=== PATIENT | female | born 1980 | race Caucasian/White ===

== ENCOUNTER → 2017-01-10 | Outpatient (CLI) | payer BC ==
--- NOTE | 2017-01-10 10:15 | CR ---
EXAMINATION: Two-view chest (PA and Lateral views). HISTORY: Wheezing. FINDINGS: The trachea is midline. The cardiomediastinal silhouette is within normal limits. No pulmonary infil trates, effusions or pneumothorax. Osseous structures appear unremarkable. IMPRESSION: No acute cardiopulmonary process.
== END ==
LOC: MW.CHFP 09:14
PROVIDERS: ATTEND Physician Assistant
DX: R06.2 Wheezing (principal)
CPT/HCPCS: 36415; 71020; 71020-26; 85025

== ENCOUNTER → 2017-01-30 | Outpatient (CLI) | payer BC | LOC: MW.CHFP 13:10 | PROVIDERS: ATTEND Student in an Organized Health Care Education/Training Program | DX: J02.9 Acute pharyngitis, unspecified (principal); R05 Cough | CPT/HCPCS: 87081; 87880 ==

== ENCOUNTER 2017-04-09 12:11 | Inpatient (IN) | payer BC ==
[2017-04-09] MEDS ORDERED: Methylergonovine 0.2 MG/1 ML Amp IM PRN (12:39)
[2017-04-09] MEDS ORDERED: Carboprost Tromethamine 250 MCG/1 ML Amp IM PRN (12:39)
[2017-04-09] MEDS ORDERED: Lidocaine 1% 50 ML MDV INJECT PRN (12:39)
[2017-04-09] MEDS ORDERED: Misoprostol 200 MCG Tab PO PRN (12:39)
[2017-04-09] MEDS ORDERED: Sodium Chloride 0.9% 10 ML Syringe FLUSH PRN (12:39)
[2017-04-09] MEDS ORDERED: Butorphanol 1 MG/ML SDV IVPUSH PRN (12:39)
[2017-04-09] MEDS ORDERED: Water For Irrigation,Sterile 1,000 ML Container IRR PRN (12:39)
[2017-04-09] MEDS ORDERED: Sodium Chloride 0.9% 2.5 ML Syringe FLUSH PRN (12:39)
[2017-04-09] MEDS ORDERED: Nalbuphine 10 MG/1 ML Vial IVPUSH PRN (12:39)
[2017-04-09] MEDS ORDERED: Oxytocin/Lactated Ringers 30 UNIT/500 ML BAG IV SCH ×2 (12:45→13:15)
[2017-04-09] MEDS ORDERED: Lactated Ringers 1,000 ML IV SCH ×2 (12:45→19:00)
[2017-04-09] MEDS ORDERED: Terbutaline 1 MG/ML SDV SUBCUT PRN (13:11)
[2017-04-09] MEDS ORDERED: Misoprostol 25 MCG (1/4 of 100 MCG) Tab VAG PRN (13:11)
[2017-04-09] MEDS ORDERED: Misoprostol 25 MCG (1/4 of 100 MCG) Tab VAG SCH (13:15)
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
[2017-04-09] MEDS ORDERED: Citric Acid/Sodium Citrate Solution 30 ML Cup PO SCH (17:15)
[2017-04-09] MEDS ORDERED: Oxytocin 10 Units/1 ML SDV ONE (17:16)
[2017-04-09] MEDS ORDERED: Ondansetron 4 MG/2 ML SDV ONE (17:16)
[2017-04-09] MEDS ORDERED: ePHEDrine 50 MG/ML SDV ONE (17:16)
[2017-04-09] MEDS ORDERED: ceFAZolin 1 GM Vial ONE (17:34)
[2017-04-09] MEDS ORDERED: Sodium Chloride 0.9% 20 ML ONE (17:34)
[2017-04-09] MEDS ORDERED: Midazolam 1 MG/ML 2 ML SDV ONE (17:41)
[2017-04-09] MEDS ORDERED: fentaNYL 100 MCG/2 ML SDV ONE (18:01)
[2017-04-09] MEDS ORDERED: Propofol 200 MG/20 ML SDV ONE (18:16)
[2017-04-09] MEDS ORDERED: HYDROmorphone 2 MG/ML Syringe ONE (18:47)
[2017-04-09] MEDS ORDERED: Ibuprofen 800 MG Tab PO PRN (18:58)
[2017-04-09] MEDS ORDERED: Bisacodyl 10 MG Supp RECTAL PRN (18:58)
[2017-04-09] MEDS ORDERED: Lanolin 100% Cream 7 GM Tube TOP PRN (18:58)
[2017-04-09] MEDS ORDERED: diphenhydrAMINE 50 MG/ML SDV IVPUSH PRN (18:58)
[2017-04-09] MEDS ORDERED: Acetaminophen/oxyCODONE 325-5 MG Tab PO PRN (18:58)
[2017-04-09] MEDS ORDERED: Ondansetron 4 MG/2 ML SDV IV PRN (18:58)
[2017-04-09] MEDS ORDERED: HYDROmorphone/Normal Saline 6 MG/30 ML PCA Vial IV PRN (19:01)
[2017-04-09] MEDS: Ketorolac 30 MG/ML SDV IVPUSH SCH (19:19)
--- NOTE | 2017-04-09 19:19 | PCM.POSTAN ---
POST ANESTHESIA ASSESSMENT - MENTAL STATUS Mental Status: alert, oriented - RESPIRATORY Respiratory Status: respiratory rate WNL, airway patent, O2 saturation stable - CARDIOVASCULAR CV Status: pulse rate WNL, blood pressure stable - GASTROINTESTINAL GI Status: no symptoms - PAIN Pain Score: 3 - POST OP HYDRATION Hydration Status: adequate & stable
[2017-04-10] MEDS: Ketorolac 30 MG/ML SDV IVPUSH SCH ×4 (01:08→18:42)
--- NOTE | 2017-04-10 06:54 | PCM48HPAN ---
Post Anesthesia Note - EVALUATION WITHIN 48HRS OF ANESTHETIC Vital Signs in Normal Range: Yes Patient Participated in Evaluation: Yes Respiratory Function Stable: Yes Airway Patent: Yes Cardiovascular Function Stable: Yes Hydration Status Stable: Yes Pain Control Satisfactory: Yes Nausea and Vomiting Control Satisfactory: Yes Mental Status Recovered: Yes
--- NOTE | 2017-04-10 07:40 | PCM.OPNOTE ---
- General Post-Op/Procedure Note Date of Surgery/Procedure: 04/09/17 Operative Procedure(s): 1 LTCS. Internal version to breech presentation. Placement of surgicel Findings: VFI in vtx present with APGARS of 7&8 and wt of 3200g. Meconium stained amniotic fluid. Normal placenta with 3VC. Normal uterus, tubes and ovaries. Pre Op Diagnosis: IUP @ 38+3. SROM. Meconium stained amniotic fluid. malpresentation Post-Op Diagnosis: Same. Delivered Anesthesia Technique: Spinal Primary Surgeon: Antonia Carlton Anesthesia Provider: Yuri Silver Homebound Teacher: Yuri Engel Fluid Replacement, Intraop: 2,100 Output, Urine Amount: 320 EBL in mLs: 750 Complications: None known Condition: Good Free Text/Narrative:: Intake & Output 04/09/17 04/10/17 04/10/17 22:59 06:59 14:59 Intake Total 2200 1500 Output Total 680 850 Balance 1520 650 JobID#[id number]
--- NOTE | 2017-04-10 08:27 | PCM.PNPP ---
[id number] Status: Reports: pain controlled, tolerating diet, ambulating, urinating - Review of Systems General: Denies: Fever, Weakness, Fatigue Pulmonary: Denies: shortness of breath, pleuritic chest pain, cough Cardiovascular: Denies: Chest Pain, Palpitations, Dyspnea on Exertion Gastrointestinal: Denies: Abdominal pain Genitourinary: Denies: dysuria Psychiatric: Reports: no symptoms - General Info Date of Service: 04/10/17 - Patient Data Vital Signs - most recent: Last Vital Signs Temp 36.8 C 04/10/17 06:00 Pulse 88 04/10/17 06:00 Resp 16 04/10/17 06:00 BP 124/72 04/10/17 06:00 Pulse Ox 99 04/10/17 06:00 Weight - most recent: 66 kg I&O - last 24 hours: Intake & Output 04/09/17 04/10/17 04/10/17 22:59 06:59 14:59 Intake Total 2200 1500 2100 Output Total 680 850 320 Balance 5949 627 6204 Lab Results - last 24 hrs: Laboratory Results - last 24 hr 04/09/17 04/09/17 04/10/17 Range/Units 13:03 13:03 05:17 WBC 11.01 H (4.0-11.0) K/uL RBC 3.38 L (4.30-5.90) M/uL Hgb 9.8 L 7.5 L (12.0-16.0) g/dL Hct 30.0 L 22.3 L (36.0-46.0) % MCV 88.8 (80.0-98.0) fL MCH 29.0 (27.0-32.0) pg MCHC 32.7 (31.0-37.0) g/dL RDW Std Deviation 46.0 (28.0-62.0) fl RDW Coeff of William 14 (11.0-15.0) % Plt Count 172 (150-400) K/uL MPV 11.30 (7.40-12.00) fL Nucleated RBC % 0.0 /100WBC Nucleated RBCs # 0 K/uL Blood Type A POSITIVE Antibody Screen NEGATIVE Crossmatch See Detail Med Orders - Current: Current Medications Bisacodyl (Dulcolax) 10 mg RECTAL .ONCE PRN PRN Reason: Constipation Butorphanol Tartrate (Stadol) 1 mg IVPUSH Q1H PRN PRN Reason: Pain Carboprost Tromethamine (Hemabate Ds) 250 mcg IM ASDIRECTED PRN PRN Reason: Post Hemorrhage Citric Acid/Sodium Citrate (Bicitra Solution) 30 ml PO .ONCE DURGA Diphenhydramine HCl (Benadryl) 25 mg IVPUSH Q6H PRN PRN Reason: Itching or Nausea Docusate Sodium (Colace) 100 mg PO BID [facility] Emollient Ointment (Lansinoh Hpa) 0 gm TOP ASDIRECTED PRN PRN Reason: Sore Nipples Hydromorphone HCl (Dilaudid [place] Man 6 Mg In Ns 30 Ml) 6 mg IV ASDIRECTED PRN; Protocol PRN Reason: Abdominal Pain Last Admin: 04/09/17 20:40 Dose: 6 mg Lactated Ringer's (Ringers, Lactated) 1,000 mls @ 150 mls/hr IV ASDIRECTED [facility] Last Admin: 04/09/17 13:03 Dose: 150 mls/hr Oxytocin/Lactated Ringer's (Pitocin In Lr 30 Units/500 Ml) 30 unit in 500 mls @ 2 mls/hr IV TITRATE DURGA; 2 MUNITS/MIN PRN Reason: Protocol Last Admin: 04/09/17 15:29 Dose: 2 munits/min, 2 mls/hr Lactated Ringer's (Ringers, Lactated) 1,000 mls @ 125 mls/hr IV ASDIRECTED [facility] Last Admin: 04/10/17 01:44 Dose: 125 mls/hr Ibuprofen (Motrin) 800 mg PO Q8H PRN PRN Reason: mild pain or fever Ketorolac Tromethamine (Toradol) 30 mg IVPUSH Q6H [facility] Stop: 04/10/17 19:01 Last Admin: 04/10/17 07:09 Dose: 30 mg Lidocaine HCl (Xylocaine 1%) 50 ml INJECT .ONCE PRN PRN Reason: Laceration repair Methylergonovine Maleate (Methergine) 0.2 mg IM ASDIRECTED PRN PRN Reason: Post Hemorrhage Misoprostol (Cytotec) 200 mcg PO .ONCE PRN PRN Reason: Post Hemorrhage Misoprostol (Cytotec) 25 mcg VAG .ONCE DURGA Misoprostol (Cytotec) 25 mcg VAG Q4H PRN PRN Reason: Cervical Ripening Stop: 04/10/17 17:12 Ondansetron HCl (Zofran) 4 mg IV Q4H PRN PRN Reason: Nausea/Vomiting Oxycodone/Acetaminophen (Percocet 325-5 Mg) 1 tab PO Q4H PRN PRN Reason: Pain (moderate 4-6) Oxycodone/Acetaminophen (Percocet 325-5 Mg) 2 tab PO Q4H PRN PRN Reason: Pain (moderate 4-6) Sodium Chloride (Saline Flush) 10 ml FLUSH ASDIRECTED PRN PRN Reason: Keep Vein Open Sodium Chloride (Saline Flush) 2.5 ml FLUSH ASDIRECTED PRN PRN Reason: Keep Vein Open Sterile Water (Sterile Water For Irrigation) 1,000 ml IRR ASDIRECTED PRN PRN Reason: delivery Terbutaline Sulfate (Brethine) 0.25 mg SUBCUT ASDIRECTED PRN PRN Reason: Tacysystole Discontinued Medications Cefazolin Sodium (Ancef) Confirm Administered Dose 2 gm .ROUTE .STK-MED ONE Stop: 04/09/17 17:35 Ephedrine Sulfate (Ephedrine Sulfate) Confirm Administered Dose 50 mg .ROUTE .STK-MED ONE Stop: 04/09/17 17:17 Fentanyl (Sublimaze) Confirm Administered Dose 100 mcg .ROUTE .STK-MED ONE Stop: 04/09/17 18:02 Hydromorphone HCl (Dilaudid) Confirm Administered Dose 2 mg .ROUTE .STK-MED ONE Stop: 04/09/17 18:48 Oxytocin/Lactated Ringer's (Pitocin In Lr 30 Units/500 Ml) 30 unit in 500 mls @ 999 mls/hr IV TITRATE DURGA PRN Reason: 999 MUNITS/MIN Stop: 04/09/17 13:16 Sodium Chloride (Normal Saline) Confirm Administered Dose 20 mls @ as directed .ROUTE .STK-MED ONE Stop: 04/09/17 17:35 Ibuprofen (Motrin) 800 mg PO Q8H PRN PRN Reason: mild pain or fever Midazolam HCl (Versed 1 Mg/Ml) Confirm Administered Dose 2 mg .ROUTE .STK-MED ONE Stop: 04/09/17 17:42 Nalbuphine HCl (Nubain) 10 mg IVPUSH Q1H PRN PRN Reason: Pain (severe 7-10) Stop: 04/09/17 14:40 Ondansetron HCl (Zofran) Confirm Administered Dose 4 mg .ROUTE .STK-MED ONE Stop: 04/09/17 17:17 Oxytocin (Pitocin) Confirm Administered Dose 20 unit .ROUTE .STK-MED ONE Stop: 04/09/17 17:17 Propofol (Diprivan 20 Ml) Confirm Administered Dose 200 mg .ROUTE .STK-MED ONE Stop: 04/09/17 18:17 - Infant Interaction Disposition, : [place] in Room with Family Infant Interaction: Holding Infant Feeding: Attempted ; Nursed Fair/Poor Support Person: - Recovery Exam Fundal Tone: Firm Fundal Level: 1 Fingerbreadths Below Umbilicus Fundal Placement: Midline Lochia Amount: Scant Lochia Color: Rubra/Red Perineum Description: Intact, Minimal Bruising/Swelling Bladder Status: Indwelling Catheter in Place Urinary Elimination: Indwelling Catheter - Exam General: alert, oriented Neck: supple Lungs: Clear to auscultation, Normal respiratory effort Cardiovascular: Regular Rate, Regular Rhythm Abdomen: bowel sounds present, soft, no tenderness, no distension Extremities: edema (trace) Psy/Mental Status: alert, normal affect, normal mood - Problem List & Annotations (1) delivery delivered SNOMED Code(s): 098800402 Code(s): O82 - ENCOUNTER FOR DELIVERY WITHOUT INDICATION Status: Acute Current Visit: Yes - Problem List Review Problem List Initiated/Reviewed/Updated: Yes - Assessment Assessment:: POD#1 from PLTCS due to malposition. Minimal pain and lochia. Catheter can be removed today. Encourage ambulation and up to shower today. Aim for discharge tomorrow. - Plan Plan:: Continue routine post-op cares. Patient will continue iron supplementation with PNV. <Madelin Johnson - Last Filed: 04/10/17 11:02> - Patient Data Vital Signs - most recent: Last Vital Signs Temp 36.8 C 04/10/17 06:00 Pulse 88 04/10/17 06:00 Resp 16 04/10/17 06:00 BP 124/72 04/10/17 06:00 Pulse Ox 99 04/10/17 06:00 I&O - last 24 hours: Intake & Output 04/09/17 04/10/17 04/10/17 22:59 06:59 14:59 Intake Total 2200 1500 2100 Output Total 680 850 320 Balance 7759 117 7653 Lab Results - last 24 hrs: Laboratory Results - last 24 hr 04/09/17 04/09/17 04/10/17 Range/Units 13:03 13:03 05:17 WBC 11.01 H (4.0-11.0) K/uL RBC 3.38 L (4.30-5.90) M/uL Hgb 9.8 L 7.5 L (12.0-16.0) g/dL Hct 30.0 L 22.3 L (36.0-46.0) % MCV 88.8 (80.0-98.0) fL MCH 29.0 (27.0-32.0) pg MCHC 32.7 (31.0-37.0) g/dL RDW Std Deviation 46.0 (28.0-62.0) fl RDW Coeff of William 14 (11.0-15.0) % Plt Count 172 (150-400) K/uL MPV 11.30 (7.40-12.00) fL Nucleated RBC % 0.0 /100WBC Nucleated RBCs # 0 K/uL Blood Type A POSITIVE Antibody Screen NEGATIVE Crossmatch See Detail Med Orders - Current: Current Medications Bisacodyl (Dulcolax) 10 mg RECTAL .ONCE PRN PRN Reason: Constipation Butorphanol Tartrate (Stadol) 1 mg IVPUSH Q1H PRN PRN Reason: Pain Carboprost Tromethamine (Hemabate Ds) 250 mcg IM ASDIRECTED PRN PRN Reason: Post Hemorrhage Citric Acid/Sodium Citrate (Bicitra Solution) 30 ml PO .ONCE DURGA Diphenhydramine HCl (Benadryl) 25 mg IVPUSH Q6H PRN PRN Reason: Itching or Nausea Docusate Sodium (Colace) 100 mg PO BID [facility] Last Admin: 04/10/17 10:00 Dose: 100 mg Emollient Ointment (Lansinoh Hpa) 0 gm TOP ASDIRECTED PRN PRN Reason: Sore Nipples Hydromorphone HCl (Dilaudid [place] Man 6 Mg In Ns 30 Ml) 6 mg IV ASDIRECTED PRN; Protocol PRN Reason: Abdominal Pain Last Admin: 04/09/17 20:40 Dose: 6 mg Lactated Ringer's (Ringers, Lactated) 1,000 mls @ 150 mls/hr IV ASDIRECTED [facility] Last Admin: 04/09/17 13:03 Dose: 150 mls/hr Oxytocin/Lactated Ringer's (Pitocin In Lr 30 Units/500 Ml) 30 unit in 500 mls @ 2 mls/hr IV TITRATE DURGA; 2 MUNITS/MIN PRN Reason: Protocol Last Admin: 04/09/17 15:29 Dose: 2 munits/min, 2 mls/hr Lactated Ringer's (Ringers, Lactated) 1,000 mls @ 125 mls/hr IV ASDIRECTED DURGA Last Admin: 04/10/17 01:44 Dose: 125 mls/hr Ibuprofen (Motrin) 800 mg PO Q8H PRN PRN Reason: mild pain or fever Ketorolac Tromethamine (Toradol) 30 mg IVPUSH Q6H [facility] Stop: 04/10/17 19:01 Last Admin: 04/10/17 07:09 Dose: 30 mg Lidocaine HCl (Xylocaine 1%) 50 ml INJECT .ONCE PRN PRN Reason: Laceration repair Methylergonovine Maleate (Methergine) 0.2 mg IM ASDIRECTED PRN PRN Reason: Post Hemorrhage Misoprostol (Cytotec) 200 mcg PO .ONCE PRN PRN Reason: Post Hemorrhage Misoprostol (Cytotec) 25 mcg VAG .ONCE [facility] Misoprostol (Cytotec) 25 mcg VAG Q4H PRN PRN Reason: Cervical Ripening Stop: 04/10/17 17:12 Ondansetron HCl (Zofran) 4 mg IV Q4H PRN PRN Reason: Nausea/Vomiting Last Admin: 04/10/17 10:52 Dose: 4 mg Oxycodone/Acetaminophen (Percocet 325-5 Mg) 1 tab PO Q4H PRN PRN Reason: Pain (moderate 4-6) Oxycodone/Acetaminophen (Percocet 325-5 Mg) 2 tab PO Q4H PRN PRN Reason: Pain (moderate 4-6) Last Admin: 04/10/17 10:01 Dose: 2 tab Sodium Chloride (Saline Flush) 10 ml FLUSH ASDIRECTED PRN PRN Reason: Keep Vein Open Sodium Chloride (Saline Flush) 2.5 ml FLUSH ASDIRECTED PRN PRN Reason: Keep Vein Open Sterile Water (Sterile Water For Irrigation) 1,000 ml IRR ASDIRECTED PRN PRN Reason: delivery Terbutaline Sulfate (Brethine) 0.25 mg SUBCUT ASDIRECTED PRN PRN Reason: Tacysystole Discontinued Medications Cefazolin Sodium (Ancef) Confirm Administered Dose 2 gm .ROUTE .STK-MED ONE Stop: 04/09/17 17:35 Ephedrine Sulfate (Ephedrine Sulfate) Confirm Administered Dose 50 mg .ROUTE .STK-MED ONE Stop: 04/09/17 17:17 Fentanyl (Sublimaze) Confirm Administered Dose 100 mcg .ROUTE .STK-MED ONE Stop: 04/09/17 18:02 Hydromorphone HCl (Dilaudid) Confirm Administered Dose 2 mg .ROUTE .STK-MED ONE Stop: 04/09/17 18:48 Oxytocin/Lactated Ringer's (Pitocin In Lr 30 Units/500 Ml) 30 unit in 500 mls @ 999 mls/hr IV TITRATE DURGA PRN Reason: 999 MUNITS/MIN Stop: 04/09/17 13:16 Sodium Chloride (Normal Saline) Confirm Administered Dose 20 mls @ as directed .ROUTE .STK-MED ONE Stop: 04/09/17 17:35 Ibuprofen (Motrin) 800 mg PO Q8H PRN PRN Reason: mild pain or fever Midazolam HCl (Versed 1 Mg/Ml) Confirm Administered Dose 2 mg .ROUTE .STK-MED ONE Stop: 04/09/17 17:42 Nalbuphine HCl (Nubain) 10 mg IVPUSH Q1H PRN PRN Reason: Pain (severe 7-10) Stop: 04/09/17 14:40 Ondansetron HCl (Zofran) Confirm Administered Dose 4 mg .ROUTE .STK-MED ONE Stop: 04/09/17 17:17 Oxytocin (Pitocin) Confirm Administered Dose 20 unit .ROUTE .STK-MED ONE Stop: 04/09/17 17:17 Propofol (Diprivan 20 Ml) Confirm Administered Dose 200 mg .ROUTE .STK-MED ONE Stop: 04/09/17 18:17 - Plan Plan:: Somewhat nauseated with Percocet will try Zofran, continue care. Agree with above
[2017-04-10] MEDS: Docusate Sodium 100 MG Cap PO SCH ×2 (10:00→21:16)
[2017-04-10] MEDS: Acetaminophen/oxyCODONE 325-5 MG Tab PO PRN (10:01)
[2017-04-10] MEDS ORDERED: fentaNYL 100 MCG/2 ML SDV IVPUSH PRN (11:23)
[2017-04-10] MEDS: HYDROmorphone 2 MG Tab PO PRN ×2 (13:26→18:42)
[2017-04-10] MEDS ORDERED: Ketorolac 30 MG/ML SDV IVPUSH SCH (16:39)
[2017-04-10] MEDS: Escitalopram 10 MG Tab PO SCH (21:16)
[2017-04-11] MEDS: Ketorolac 30 MG/ML SDV IVPUSH SCH ×2 (00:54→07:00)
[2017-04-11] MEDS: HYDROmorphone 2 MG Tab PO PRN ×2 (01:03→07:02)
--- NOTE | 2017-04-11 05:59 | OR ---
SURGEON: Antonia Carlton DATE OF PROCEDURE: 04/09/2017 BRIEF PREOPERATIVE HISTORY: This is a 36-year-old, G5, P4, presented to Labor and Delivery after being evaluated in the office at [facility] for spontaneous rupture of membranes. The patient had a positive AmniSure and also the patient was noted to be 3 cm dilated. The patient was examined by me in Labor and Delivery. After category 1 reactive to heart tracing, the patient was found to be a generous 3 cm dilated, and the patient had a fore-bag, and Fore- bag was ruptured for copious meconium fluid. Also, vertex was not engaged but definitely was palpable at rupture membranes. Examining hand stayed in the vagina until all excess fluid was thought to have drained. The patient was examined again by nursing staff secondary to the patient starting to feel a little bit more uncomfortable with contractions and the patient was noted to be vertex by the nursing staff with changing cervix. The patient was examined a 3rd time and to place a scalp electrode secondary to difficulty keeping the baby on the monitor. When the patient was examined by nursing staff, it was found that the vertex was not palpable and questionable whether or not there was an elbow or foot. The patient was examined by me and it was felt to be the right elbow as the vertex was noted to be in the patient's left mid abdomen. At that time, Pitocin was turned off and it was discussed with the patient, the need for a primary secondary to malpresentation and ruptured status with the elbow well applied and the patient was 6 cm dilated. The patient was apprised of risk of being bleeding, infection, poor wound healing, possible damage to the bowel, the bladder, ureters, nerves blood vessels, or any other adjacent structures. The patient was also apprised of the risk of thromboembolic disease and risk of spinal anesthesia, though she would be counseled in more depth by the MANAGER METROLOGY and anesthesiologist. Of note, heart tracing was still category 1 status when transferring to the operating room. PREOPERATIVE DIAGNOSES: 1. Intrauterine at 38 weeks and 3 days. 2. Spontaneous rupture of membranes. 3. Meconium-stained amniotic fluid. 4. malpresentation. POSTOPERATIVE DIAGNOSES: 1. Intrauterine at 38 weeks and 3 days. 2. Spontaneous rupture of membranes. 3. Meconium-stained amniotic fluid. 4. malpresentation. 5. Delivered status. PROCEDURE: 1. Primary low transverse section. 2. Internal version to breech presentation. 3. Placement of Surgicel. ANESTHESIA: Spinal. ANESTHESIA PROVIDER: Yuri Silver. MANAGER METROLOGY was Yuri Engel. FLUID REPLACEMENT: 2100 mL of crystalloid. URINE OUTPUT: 320 mL of clear urine at the end of the procedure. ESTIMATED BLOOD LOSS: 750 mL. FINDINGS: Viable female initially with right and transverse position with elbow presenting with score of 7 and 8 at delivery and weight of 3200 g. Meconium-stained amniotic fluid. Normal placenta with 3-vessel cord. Normal uterus, tubes, and ovaries. Of not back was noted to be up prior to hysterotomy. COMPLICATIONS: None known. CONDITION: Post surgery was good. DESCRIPTION OF PROCEDURE: The patient was taken to the operating room in her labor bed with Venodynes on. The patient was transferred over to the OR bed and the patient was able to sit up for her spinal anesthetic. Venodynes were on and active prior to placement of spinal. After placement of spinal, the patient was quickly laid down, Padron catheter was placed. The patient was then prepped and draped in the normal sterile fashion in the left lateral position. A time-out was then held to ensure that was appropriate patient, appropriate physician, and appropriate procedure. The patient did receive 2 g of IV Ancef prior to start of the procedure. The patient was tested prior to start of procedure, which spinal anesthesia was found to be adequate. A Pfannenstiel skin incision was made approximately 2 cm above the pubic bone with a scalpel blade. The subcutaneous adipose tissue was dissected down to the fascia with the Bovie. The fascia was incised in the midline and extended laterally with the Bovie. The superior aspect of the fascial incision was grasped with the Jose Francisco clamps, and the rectus muscles were dissected off bluntly, then sharply with the Bovie. Attention then was turned to the inferior aspect of the same incision, which in a similar fashion was grasped with the Jose Francisco clamps, elevated, and the rectus muscles were dissected off bluntly, then sharply. The rectus muscles were then in the midline, sharply with the Bovie and then the peritoneum was entered bluntly with the index digits. With lateral blunt stretching, the exposure to the abdomen was increased. The Kelechi self-retaining retractor was placed to the patient's abdomen and then set. The vesicouterine peritoneum was identified and opened with the Metzenbaum scissors. The bladder flap was created digitally. A fresh scalpel blade was used to incise the lower uterine segment in a transverse fashion. The uterus was opened in an anteroposterior direction to prevent lateral shearing out to the uterine vessels. On initial entry, amniotic fluid again was noted to be meconium-stained. With reaching down to the pelvis, it was felt that the elbow was presenting, baby was noted to be transverse with the back up. Initially, it was questionable whether or not the baby would be converted to vertex, but fetus was eventually converted to breech and the breech was brought through the hysterotomy incision. After the legs were out, the arms were reduced followed by the vertex which the head was flexed and the baby was completely extracted from the uterus. The infant was bulb suctioned at delivery and cord was doubly clamped and cut, and the was taken directly over to the baby warmer where baby doctor was waiting. Cord gas and cord blood were collected and sent for analysis. Afterwards, the placenta was manually removed from the patient's uterus. The uterus was cleared of all clots and debris. Of note, the patient did receive IV Pitocin in a bolus fashion to prevent excessive maternal blood loss and help the uterus contract down. The first layer of the uterus was closed with 0 Vicryl sutured in a running, locked fashion. The 2nd layer of the uterus was closed with 0 Vicryl suture and the 2nd layer was imbricated. Stray bleeders were cauterized. The lower uterine segment and stray bleeders were cauterized. The ovaries and tubes were inspected bilaterally and noted to be normal. Surgicel were placed over the hysterotomy incision. The Kelechi self-retaining retractor was removed from the patient's abdomen. The peritoneum and rectus muscles were reapproximated with 0 Vicryl suture in a running mattress suture. The fascia was reapproximated with 0 Vicryl suture in a running fashion. The adipose was reapproximated with 3-0 plain gut suture. The skin was reapproximated with 3-0 Prolene suture. The patient's abdomen was cleansed. Mastisol was placed, Steri - Strips, Telfa, and a pressure dressing. Afterwards, the patient was cleansed and eventually transferred to her bed. The patient was taken to recovery in awake and stable condition. MARIEL / CONRAD /[id number]
[2017-04-11] MEDS: Acetaminophen/oxyCODONE 325-5 MG Tab PO PRN ×4 (09:50→21:48)
[2017-04-11] MEDS: Docusate Sodium 100 MG Cap PO SCH ×2 (09:50→21:48)
--- NOTE | 2017-04-11 13:00 | PCM.PNPP ---
- General Info Date of Service: 04/11/17 Functional Status: Reports: pain controlled, tolerating diet, ambulating, urinating - Review of Systems General: Reports: No Symptoms HEENT: Reports: no symptoms Pulmonary: Reports: no symptoms Cardiovascular: Reports: No Symptoms Gastrointestinal: Reports: No symptoms Genitourinary: Reports: no symptoms Musculoskeletal: Reports: no symptoms Skin: Reports: no symptoms Neurological: Reports: No Symptoms Psychiatric: Reports: no symptoms - Patient Data Vital Signs - most recent: Last Vital Signs Temp 36.5 C 04/11/17 04:00 Pulse 78 04/11/17 04:00 Resp 16 04/11/17 04:00 BP 115/63 04/11/17 04:00 Pulse Ox 97 04/11/17 04:00 Weight - most recent: 66 kg Med Orders - Current: Current Medications Bisacodyl (Dulcolax) 10 mg RECTAL .ONCE PRN PRN Reason: Constipation Butorphanol Tartrate (Stadol) 1 mg IVPUSH Q1H PRN PRN Reason: Pain Carboprost Tromethamine (Hemabate Ds) 250 mcg IM ASDIRECTED PRN PRN Reason: Post Hemorrhage Citric Acid/Sodium Citrate (Bicitra Solution) 30 ml PO .ONCE DURGA Diphenhydramine HCl (Benadryl) 25 mg IVPUSH Q6H PRN PRN Reason: Itching or Nausea Docusate Sodium (Colace) 100 mg PO BID [facility] Last Admin: 04/11/17 09:50 Dose: 100 mg Emollient Ointment (Lansinoh Hpa) 0 gm TOP ASDIRECTED PRN PRN Reason: Sore Nipples Escitalopram Oxalate (Lexapro) 10 mg PO DAILY [facility] Last Admin: 04/10/17 21:16 Dose: 10 mg Hydromorphone HCl (Dilaudid Visual Developer 6 Mg In Ns 30 Ml) 6 mg IV ASDIRECTED PRN; Protocol PRN Reason: Abdominal Pain Last Admin: 04/09/17 20:40 Dose: 6 mg Hydromorphone HCl (Dilaudid) 4 mg PO Q6H PRN PRN Reason: pain Last Admin: 04/11/17 07:02 Dose: 4 mg Lactated Ringer's (Ringers, Lactated) 1,000 mls @ 150 mls/hr IV ASDIRECTED DURGA Last Admin: 04/09/17 13:03 Dose: 150 mls/hr Oxytocin/Lactated Ringer's (Pitocin In Lr 30 Units/500 Ml) 30 unit in 500 mls @ 2 mls/hr IV TITRATE DURGA; 2 MUNITS/MIN PRN Reason: Protocol Last Admin: 04/09/17 15:29 Dose: 2 munits/min, 2 mls/hr Lactated Ringer's (Ringers, Lactated) 1,000 mls @ 125 mls/hr IV ASDIRECTED DURGA Last Admin: 04/10/17 01:44 Dose: 125 mls/hr Ibuprofen (Motrin) 800 mg PO Q8H PRN PRN Reason: mild pain or fever Lidocaine HCl (Xylocaine 1%) 50 ml INJECT .ONCE PRN PRN Reason: Laceration repair Methylergonovine Maleate (Methergine) 0.2 mg IM ASDIRECTED PRN PRN Reason: Post Hemorrhage Misoprostol (Cytotec) 200 mcg PO .ONCE PRN PRN Reason: Post Hemorrhage Misoprostol (Cytotec) 25 mcg VAG .ONCE DURGA Ondansetron HCl (Zofran) 4 mg IV Q4H PRN PRN Reason: Nausea/Vomiting Last Admin: 04/10/17 10:52 Dose: 4 mg Oxycodone/Acetaminophen (Percocet 325-5 Mg) 1 tab PO Q4H PRN PRN Reason: Pain (moderate 4-6) Oxycodone/Acetaminophen (Percocet 325-5 Mg) 2 tab PO Q4H PRN PRN Reason: Pain (moderate 4-6) Last Admin: 04/11/17 09:50 Dose: 2 tab Sodium Chloride (Saline Flush) 10 ml FLUSH ASDIRECTED PRN PRN Reason: Keep Vein Open Sodium Chloride (Saline Flush) 2.5 ml FLUSH ASDIRECTED PRN PRN Reason: Keep Vein Open Sterile Water (Sterile Water For Irrigation) 1,000 ml IRR ASDIRECTED PRN PRN Reason: delivery Terbutaline Sulfate (Brethine) 0.25 mg SUBCUT ASDIRECTED PRN PRN Reason: Tacysystole Discontinued Medications Cefazolin Sodium (Ancef) Confirm Administered Dose 2 gm .ROUTE .STK-MED ONE Stop: 04/09/17 17:35 Ephedrine Sulfate (Ephedrine Sulfate) Confirm Administered Dose 50 mg .ROUTE .STK-MED ONE Stop: 04/09/17 17:17 Fentanyl (Sublimaze) Confirm Administered Dose 100 mcg .ROUTE .STK-MED ONE Stop: 04/09/17 18:02 Fentanyl (Sublimaze) 50 mcg IVPUSH Q15M PRN PRN Reason: Pain Stop: 04/10/17 11:54 Last Admin: 04/10/17 11:33 Dose: 50 mcg Hydromorphone HCl (Dilaudid) Confirm Administered Dose 2 mg .ROUTE .STK-MED ONE Stop: 04/09/17 18:48 Oxytocin/Lactated Ringer's (Pitocin In Lr 30 Units/500 Ml) 30 unit in 500 mls @ 999 mls/hr IV TITRATE DURGA PRN Reason: 999 MUNITS/MIN Stop: 04/09/17 13:16 Sodium Chloride (Normal Saline) Confirm Administered Dose 20 mls @ as directed .ROUTE .STK-MED ONE Stop: 04/09/17 17:35 Ibuprofen (Motrin) 800 mg PO Q8H PRN PRN Reason: mild pain or fever Ketorolac Tromethamine (Toradol) 30 mg IVPUSH Q6H [facility] Stop: 04/10/17 19:01 Last Admin: 04/10/17 13:25 Dose: 30 mg Ketorolac Tromethamine (Toradol) 30 mg IVPUSH Q6H [facility] Stop: 04/11/17 07:01 Last Admin: 04/11/17 07:00 Dose: 30 mg Midazolam HCl (Versed 1 Mg/Ml) Confirm Administered Dose 2 mg .ROUTE .STK-MED ONE Stop: 04/09/17 17:42 Misoprostol (Cytotec) 25 mcg VAG Q4H PRN PRN Reason: Cervical Ripening Stop: 04/10/17 17:12 Nalbuphine HCl (Nubain) 10 mg IVPUSH Q1H PRN PRN Reason: Pain (severe 7-10) Stop: 04/09/17 14:40 Ondansetron HCl (Zofran) Confirm Administered Dose 4 mg .ROUTE .STK-MED ONE Stop: 04/09/17 17:17 Oxytocin (Pitocin) Confirm Administered Dose 20 unit .ROUTE .STK-MED ONE Stop: 04/09/17 17:17 Propofol (Diprivan 20 Ml) Confirm Administered Dose 200 mg .ROUTE .STK-MED ONE Stop: 04/09/17 18:17 - Interaction Disposition, : in Room with Family Infant Interaction: Holding Feeding: Attempted ; Nursed Fair/Poor Support Person: - Recovery Exam Fundal Tone: Firm Fundal Level: 1 Fingerbreadths Below Umbilicus Fundal Placement: Midline Lochia Amount: Scant Lochia Color: Rubra/Red Perineum Description: Intact, Minimal Bruising/Swelling Bladder Status: Voiding Urinary Elimination: Voided - Exam General: alert, oriented HEENT: Pupils equal Neck: supple Lungs: Clear to auscultation, Normal respiratory effort Cardiovascular: Regular Rate, Regular Rhythm Abdomen: bowel sounds present, soft, no tenderness, no distension Extremities: no edema Skin: warm, dry, intact Neurological: no new focal deficit Psy/Mental Status: alert, normal affect, normal mood - Problem List Review Problem List Initiated/Reviewed/Updated: Yes - My Orders Last 24 Hours: My Active Orders 04/10/17 16:37 Heat Therapy [OM.PC] Routine 04/10/17 21:00 Escitalopram [Lexapro] 10 mg PO DAILY - Assessment Assessment:: POD#2 from [facility] due to malposition. Pain control is still not adequate. She is well, minimal lochia. - Plan Plan:: Will try Percocet for pain control. Ambulate, shower today, anticipate home in am.
[2017-04-11] MEDS: Escitalopram 10 MG Tab PO SCH (21:53)
[2017-04-11] MEDS: Ibuprofen 800 MG Tab PO PRN (23:08)
[2017-04-12] MEDS: Acetaminophen/oxyCODONE 325-5 MG Tab PO PRN ×2 (02:22→08:18)
[2017-04-12] MEDS: Ibuprofen 800 MG Tab PO PRN (06:43)
--- NOTE | 2017-04-12 08:15 | PCM.PNPP ---
<Larissa Woody - Last Filed: 04/12/17 08:12> - General Info Date of Service: 04/12/17 Functional Status: Reports: pain controlled, tolerating diet, ambulating, urinating - Review of Systems General: Denies: Fever, Weakness, Fatigue Pulmonary: Denies: shortness of breath, pleuritic chest pain, cough Cardiovascular: Denies: Chest Pain, Palpitations, Dyspnea on Exertion Gastrointestinal: Denies: Abdominal pain Genitourinary: Denies: dysuria Psychiatric: Reports: no symptoms - General Info Date of Service: 04/12/17 - Patient Data Vital Signs - most recent: Last Vital Signs Temp 36.8 C 04/12/17 04:45 Pulse 82 04/12/17 04:45 Resp 16 04/12/17 04:45 BP 121/60 04/12/17 04:45 Pulse Ox 95 04/12/17 04:45 Weight - most recent: 66 kg Med Orders - Current: Current Medications Bisacodyl (Dulcolax) 10 mg RECTAL .ONCE PRN PRN Reason: Constipation Butorphanol Tartrate (Stadol) 1 mg IVPUSH Q1H PRN PRN Reason: Pain Carboprost Tromethamine (Hemabate Ds) 250 mcg IM ASDIRECTED PRN PRN Reason: Post Hemorrhage Citric Acid/Sodium Citrate (Bicitra Solution) 30 ml PO .ONCE DURGA Diphenhydramine HCl (Benadryl) 25 mg IVPUSH Q6H PRN PRN Reason: Itching or Nausea Docusate Sodium (Colace) 100 mg PO BID [facility] Last Admin: 04/11/17 21:48 Dose: 100 mg Emollient Ointment (Lansinoh Hpa) 0 gm TOP ASDIRECTED PRN PRN Reason: Sore Nipples Escitalopram Oxalate (Lexapro) 10 mg PO DAILY [facility] Last Admin: 04/11/17 21:53 Dose: 10 mg Hydromorphone HCl (Dilaudid Emt Intermediate 6 Mg In Ns 30 Ml) 6 mg IV ASDIRECTED PRN; Protocol PRN Reason: Abdominal Pain Last Admin: 04/09/17 20:40 Dose: 6 mg Hydromorphone HCl (Dilaudid) 4 mg PO Q6H PRN PRN Reason: pain Last Admin: 04/11/17 07:02 Dose: 4 mg Lactated Ringer's (Ringers, Lactated) 1,000 mls @ 150 mls/hr IV ASDIRECTED DURGA Last Admin: 04/09/17 13:03 Dose: 150 mls/hr Oxytocin/Lactated Ringer's (Pitocin In Lr 30 Units/500 Ml) 30 unit in 500 mls @ 2 mls/hr IV TITRATE DURGA; 2 MUNITS/MIN PRN Reason: Protocol Last Admin: 04/09/17 15:29 Dose: 2 munits/min, 2 mls/hr Lactated Ringer's (Ringers, Lactated) 1,000 mls @ 125 mls/hr IV ASDIRECTED [facility]UR[facility] Last Admin: 04/10/17 01:44 Dose: 125 mls/hr Ibuprofen (Motrin) 800 mg PO Q8H PRN PRN Reason: mild pain or fever Last Admin: 04/12/17 06:43 Dose: 800 mg Lidocaine HCl (Xylocaine 1%) 50 ml INJECT .ONCE PRN PRN Reason: Laceration repair Methylergonovine Maleate (Methergine) 0.2 mg IM ASDIRECTED PRN PRN Reason: Post Hemorrhage Misoprostol (Cytotec) 200 mcg PO .ONCE PRN PRN Reason: Post Hemorrhage Misoprostol (Cytotec) 25 mcg VAG .ONCE DURGA Nicotine (Habitrol) 14 mg TRDERM DAILY [facility] Ondansetron HCl (Zofran) 4 mg IV Q4H PRN PRN Reason: Nausea/Vomiting Last Admin: 04/10/17 10:52 Dose: 4 mg Oxycodone/Acetaminophen (Percocet 325-5 Mg) 1 tab PO Q4H PRN PRN Reason: Pain (moderate 4-6) Oxycodone/Acetaminophen (Percocet 325-5 Mg) 2 tab PO Q4H PRN PRN Reason: Pain (moderate 4-6) Last Admin: 04/12/17 02:22 Dose: 2 tab Sodium Chloride (Saline Flush) 10 ml FLUSH ASDIRECTED PRN PRN Reason: Keep Vein Open Sodium Chloride (Saline Flush) 2.5 ml FLUSH ASDIRECTED PRN PRN Reason: Keep Vein Open Sterile Water (Sterile Water For Irrigation) 1,000 ml IRR ASDIRECTED PRN PRN Reason: delivery Terbutaline Sulfate (Brethine) 0.25 mg SUBCUT ASDIRECTED PRN PRN Reason: Tacysystole Discontinued Medications Cefazolin Sodium (Ancef) Confirm Administered Dose 2 gm .ROUTE .STK-MED ONE Stop: 04/09/17 17:35 Ephedrine Sulfate (Ephedrine Sulfate) Confirm Administered Dose 50 mg .ROUTE .STK-MED ONE Stop: 04/09/17 17:17 Fentanyl (Sublimaze) Confirm Administered Dose 100 mcg .ROUTE .STK-MED ONE Stop: 04/09/17 18:02 Fentanyl (Sublimaze) 50 mcg IVPUSH Q15M PRN PRN Reason: Pain Stop: 04/10/17 11:54 Last Admin: 04/10/17 11:33 Dose: 50 mcg Hydromorphone HCl (Dilaudid) Confirm Administered Dose 2 mg .ROUTE .STK-MED ONE Stop: 04/09/17 18:48 Oxytocin/Lactated Ringer's (Pitocin In Lr 30 Units/500 Ml) 30 unit in 500 mls @ 999 mls/hr IV TITRATE DURGA PRN Reason: 999 MUNITS/MIN Stop: 04/09/17 13:16 Sodium Chloride (Normal Saline) Confirm Administered Dose 20 mls @ as directed .ROUTE .STK-MED ONE Stop: 04/09/17 17:35 Ibuprofen (Motrin) 800 mg PO Q8H PRN PRN Reason: mild pain or fever Ketorolac Tromethamine (Toradol) 30 mg IVPUSH Q6H [facility] Stop: 04/10/17 19:01 Last Admin: 04/10/17 13:25 Dose: 30 mg Ketorolac Tromethamine (Toradol) 30 mg IVPUSH Q6H [facility] Stop: 04/11/17 07:01 Last Admin: 04/11/17 07:00 Dose: 30 mg Midazolam HCl (Versed 1 Mg/Ml) Confirm Administered Dose 2 mg .ROUTE .STK-MED ONE Stop: 04/09/17 17:42 Misoprostol (Cytotec) 25 mcg VAG Q4H PRN PRN Reason: Cervical Ripening Stop: 04/10/17 17:12 Nalbuphine HCl (Nubain) 10 mg IVPUSH Q1H PRN PRN Reason: Pain (severe 7-10) Stop: 04/09/17 14:40 Ondansetron HCl (Zofran) Confirm Administered Dose 4 mg .ROUTE .STK-MED ONE Stop: 04/09/17 17:17 Oxytocin (Pitocin) Confirm Administered Dose 20 unit .ROUTE .STK-MED ONE Stop: 04/09/17 17:17 Propofol (Diprivan 20 Ml) Confirm Administered Dose 200 mg .ROUTE .STK-MED ONE Stop: 04/09/17 18:17 - Infant Interaction Infant Disposition, : [place] in Room with Family Interaction: Holding Infant Feeding: Attempted ; Nursed Fair/Poor Support Person: - Recovery Exam Fundal Tone: Firm Fundal Level: At Umbilicus Fundal Placement: Midline Lochia Amount: Scant Lochia Color: Rubra/Red Perineum Description: Intact, Minimal Bruising/Swelling Bladder Status: Voiding Urinary Elimination: Voided - Exam General: alert, oriented Lungs: Clear to auscultation, Normal respiratory effort Cardiovascular: Regular Rate, Regular Rhythm Abdomen: bowel sounds present, soft, no tenderness, no distension Extremities: edema (trace) Psy/Mental Status: alert, normal affect, normal mood - Problem List & Annotations (1) delivery delivered SNOMED Code(s): 465911704 Code(s): O82 - ENCOUNTER FOR DELIVERY WITHOUT INDICATION Status: Acute Current Visit: Yes - Problem List Review Problem List Initiated/Reviewed/Updated: Yes - Assessment Assessment:: POD#2 from [facility] due to malposition. Pain control has improved. Rx will be sent for Percocet. Discharge home today. - Plan Plan:: Discharge home today. Nothing in the vagina for 6 weeks. Continue PNC while breast feeding. Rx for Percocet to use as needed for pain. No lifting greater than 10lbs a day. Instructed patient to call if she develops fever greater than 101 or bleeding through a large pad an hour. F/U with [facility] in 2 and 6 weeks. <Madelin Johnson - Last Filed: 04/12/17 08:51> - Patient Data Vital Signs - most recent: Last Vital Signs Temp 36.8 C 04/12/17 04:45 Pulse 82 04/12/17 04:45 Resp 16 04/12/17 04:45 BP 121/60 04/12/17 04:45 Pulse Ox 95 04/12/17 04:45 Med Orders - Current: Current Medications Bisacodyl (Dulcolax) 10 mg RECTAL .ONCE PRN PRN Reason: Constipation Butorphanol Tartrate (Stadol) 1 mg IVPUSH Q1H PRN PRN Reason: Pain Carboprost Tromethamine (Hemabate Ds) 250 mcg IM ASDIRECTED PRN PRN Reason: Post Hemorrhage Citric Acid/Sodium Citrate (Bicitra Solution) 30 ml PO .ONCE DUR[facility] Diphenhydramine HCl (Benadryl) 25 mg IVPUSH Q6H PRN PRN Reason: Itching or Nausea Docusate Sodium (Colace) 100 mg PO BID [facility] Last Admin: 04/12/17 08:18 Dose: 100 mg Emollient Ointment (Lansinoh Hpa) 0 gm TOP ASDIRECTED PRN PRN Reason: Sore Nipples Escitalopram Oxalate (Lexapro) 10 mg PO DAILY [facility] Last Admin: 04/12/17 08:23 Dose: Not Given Hydromorphone HCl (Dilaudid Emt Intermediate 6 Mg In Ns 30 Ml) 6 mg IV ASDIRECTED PRN; Protocol PRN Reason: Abdominal Pain Last Admin: 04/09/17 20:40 Dose: 6 mg Hydromorphone HCl (Dilaudid) 4 mg PO Q6H PRN PRN Reason: pain Last Admin: 04/11/17 07:02 Dose: 4 mg Lactated Ringer's (Ringers, Lactated) 1,000 mls @ 150 mls/hr IV ASDIRECTED [facility] Last Admin: 04/09/17 13:03 Dose: 150 mls/hr Oxytocin/Lactated Ringer's (Pitocin In Lr 30 Units/500 Ml) 30 unit in 500 mls @ 2 mls/hr IV TITRATE DURGA; 2 MUNITS/MIN PRN Reason: Protocol Last Admin: 04/09/17 15:29 Dose: 2 munits/min, 2 mls/hr Lactated Ringer's (Ringers, Lactated) 1,000 mls @ 125 mls/hr IV ASDIRECTED [facility] Last Admin: 04/10/17 01:44 Dose: 125 mls/hr Ibuprofen (Motrin) 800 mg PO Q8H PRN PRN Reason: mild pain or fever Last Admin: 04/12/17 06:43 Dose: 800 mg Lidocaine HCl (Xylocaine 1%) 50 ml INJECT .ONCE PRN PRN Reason: Laceration repair Methylergonovine Maleate (Methergine) 0.2 mg IM ASDIRECTED PRN PRN Reason: Post Hemorrhage Misoprostol (Cytotec) 200 mcg PO .ONCE PRN PRN Reason: Post Hemorrhage Misoprostol (Cytotec) 25 mcg VAG .ONCE DUR[facility] Nicotine (Habitrol) 14 mg TRDERM DAILY [facility] Last Admin: 04/12/17 08:22 Dose: 14 mg Ondansetron HCl (Zofran) 4 mg IV Q4H PRN PRN Reason: Nausea/Vomiting Last Admin: 04/10/17 10:52 Dose: 4 mg Oxycodone/Acetaminophen (Percocet 325-5 Mg) 1 tab PO Q4H PRN PRN Reason: Pain (moderate 4-6) Oxycodone/Acetaminophen (Percocet 325-5 Mg) 2 tab PO Q4H PRN PRN Reason: Pain (moderate 4-6) Last Admin: 04/12/17 08:18 Dose: 2 tab Sodium Chloride (Saline Flush) 10 ml FLUSH ASDIRECTED PRN PRN Reason: Keep Vein Open Sodium Chloride (Saline Flush) 2.5 ml FLUSH ASDIRECTED PRN PRN Reason: Keep Vein Open Sterile Water (Sterile Water For Irrigation) 1,000 ml IRR ASDIRECTED PRN PRN Reason: delivery Terbutaline Sulfate (Brethine) 0.25 mg SUBCUT ASDIRECTED PRN PRN Reason: Tacysystole Discontinued Medications Cefazolin Sodium (Ancef) Confirm Administered Dose 2 gm .ROUTE .STK-MED ONE Stop: 04/09/17 17:35 Ephedrine Sulfate (Ephedrine Sulfate) Confirm Administered Dose 50 mg .ROUTE .STK-MED ONE Stop: 04/09/17 17:17 Fentanyl (Sublimaze) Confirm Administered Dose 100 mcg .ROUTE .STK-MED ONE Stop: 04/09/17 18:02 Fentanyl (Sublimaze) 50 mcg IVPUSH Q15M PRN PRN Reason: Pain Stop: 04/10/17 11:54 Last Admin: 04/10/17 11:33 Dose: 50 mcg Hydromorphone HCl (Dilaudid) Confirm Administered Dose 2 mg .ROUTE .STK-MED ONE Stop: 04/09/17 18:48 Oxytocin/Lactated Ringer's (Pitocin In Lr 30 Units/500 Ml) 30 unit in 500 mls @ 999 mls/hr IV TITRATE [facility] PRN Reason: 999 MUNITS/MIN Stop: 04/09/17 13:16 Sodium Chloride (Normal Saline) Confirm Administered Dose 20 mls @ as directed .ROUTE .STK-MED ONE Stop: 04/09/17 17:35 Ibuprofen (Motrin) 800 mg PO Q8H PRN PRN Reason: mild pain or fever Ketorolac Tromethamine (Toradol) 30 mg IVPUSH Q6H [facility] Stop: 04/10/17 19:01 Last Admin: 04/10/17 13:25 Dose: 30 mg Ketorolac Tromethamine (Toradol) 30 mg IVPUSH Q6H [facility] Stop: 04/11/17 07:01 Last Admin: 04/11/17 07:00 Dose: 30 mg Midazolam HCl (Versed 1 Mg/Ml) Confirm Administered Dose 2 mg .ROUTE .STK-MED ONE Stop: 04/09/17 17:42 Misoprostol (Cytotec) 25 mcg VAG Q4H PRN PRN Reason: Cervical Ripening Stop: 04/10/17 17:12 Nalbuphine HCl (Nubain) 10 mg IVPUSH Q1H PRN PRN Reason: Pain (severe 7-10) Stop: 04/09/17 14:40 Ondansetron HCl (Zofran) Confirm Administered Dose 4 mg .ROUTE .STK-MED ONE Stop: 04/09/17 17:17 Oxytocin (Pitocin) Confirm Administered Dose 20 unit .ROUTE .STK-MED ONE Stop: 04/09/17 17:17 Propofol (Diprivan 20 Ml) Confirm Administered Dose 200 mg .ROUTE .STK-MED ONE Stop: 04/09/17 18:17 - Plan Plan:: Agree with above.
[2017-04-12] MEDS: Docusate Sodium 100 MG Cap PO SCH ×2 (08:18→09:49)
[2017-04-12] MEDS: Nicotine 14 MG/24 Hr Patch TRDERM SCH ×2 (08:22→09:49)
[2017-04-12] MEDS: Escitalopram 10 MG Tab PO SCH (08:23)
[2017-04-12 09:41] VITALS: BP 120/56
== END 2017-04-12 11:55 | disposition home or self-care (01) | DRG 540 ==
LOC: MW.OBCHECK 12:11 → MW.OB 12:15 → MW.OBCHECK 12:40 → OBSVTOIN 12:52 → MW.OB 18:17
PROVIDERS: ADMIT Obstetrics & Gynecology; ATTEND Obstetrics & Gynecology
PROC: 10D00Z1 Extraction of Products of Conception, Low, Open Approach (ICD-10-PCS; principal; 2017-04-09)
PROC: 10S07ZZ Reposition Products of Conception, Via Natural or Artificial Opening (ICD-10-PCS; 2017-04-09)
DX: O42.02 Full-term premature rupture of membranes, onset of labor within 24 hours of rupture (principal); O32.1XX0 Maternal care for breech presentation, not applicable or unspecified; O77.0 Labor and delivery complicated by meconium in amniotic fluid; Z3A.38 38 weeks gestation of pregnancy; Z37.0 Single live birth
CPT/HCPCS: 01961; 36415; 59025; 85014; 85018; 85027; 86850; 86900; 86901; 86920; 86921; 86922; A9270-GY; J0690; J1170; J1885; J2250; J2405; J2590; J2704; J3010; J7120

== ENCOUNTER 2017-10-13 17:38 | Emergency (ER) | payer BC ==
[2017-10-13] MEDS ORDERED: Ketorolac 60 MG/2 ML SDV IM ONE (18:08)
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
[2017-10-14 06:58] VITALS: BP 119/57
--- NOTE | 2017-10-15 18:21 | CT ---
EXAM DATE: 10/13/17 PATIENT'S AGE: 37 Patient: SULY WOMACK Facility: [place], [place] Site . Site : [id number] Study: CT Facial [id number]/13/2018 6:54:54 PM Ordering Physician: Emile Caldera Final Report: TECHNIQUE: Noncontrast CT of the facial bones. Three plane reformatted images. INDICATION: Fall and facial injury, prior history of facial bone fractures. FINDINGS: Chronic fracture deformities of the maxillary sinuses, region the nose, the inferior orbital rims and right pterygoid plates with reconstruction plates. No acute facial fractures are identified. No sinus fluid. Scattered sinus mucosal thickening. The maxilla is edentulous. Multiple dental caries in the mandibular teeth. The globes appear intact. Remainder of the visualized facial soft tissues are unremarkable. Impression: Prior [place] 2 fracture with reconstruction. No acute facial bone fractures. Please note that all CT scans performed at this facility use dose modulation, iterative reconstruction, and/or weight based dosing when appropriate to reduce radiation dose to as low as reasonably achievable. Dictated by Sonu Bird MD @ 10/13/2017 7:16:11 PM Dictated by: Sonu Bird MD @ 10/13/2017 19:16:23 (Electronic Signature) Report Signed by Proxy. [place]
== END 2017-10-13 20:00 | disposition home or self-care (01) ==
LOC: MW.ED 17:38
DX: S00.83XA Contusion of other part of head, initial encounter (principal); S00.31XA Abrasion of nose, initial encounter; F41.9 Anxiety disorder, unspecified; F43.10 Post-traumatic stress disorder, unspecified; F17.210 Nicotine dependence, cigarettes, uncomplicated; Z79.899 Other long term (current) drug therapy; Z88.5 Allergy status to narcotic agent; W01.198A Fall on same level from slipping, tripping and stumbling with subsequent striking against other object, initial encounter
CPT/HCPCS: 70486; 96372; 99283; J1885

== ENCOUNTER 2020-11-05 17:31 | Emergency (ER) | payer OTHER ==
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
--- NOTE | 2020-11-05 18:02 | CR ---
INDICATION: chest pain TECHNIQUE: Chest 1 view. COMPARISON: 01/10/17 FINDINGS: Cardiovascular and mediastinum: Heart size and vasculature are normal in caliber and appearance. Mediastinum is within normal limits. Lungs and pleural space: Lungs are clear. No sign of infiltrate or mass. No sign of pleural effusion. No pneumothorax. Bones and soft tissues: No significant findings. IMPRESSION: Unremarkable chest. Dictated by: Po Chavez MD @ 11/05/2020 18:01:10 (Electronically Signed)
[2020-11-05 19:06] VITALS: BP 112/63; PULSE 69
== END 2020-11-05 19:19 | disposition home or self-care (01) ==
LOC: MW.ED 17:31
DX: J06.9 Acute upper respiratory infection, unspecified (principal); Z20.822 Contact with and (suspected) exposure to COVID-19; Z88.5 Allergy status to narcotic agent; Z79.899 Other long term (current) drug therapy
CPT/HCPCS: 71045; 71045-26; 87651-QW; 93010; 99283; 99284-25; U0002

== ENCOUNTER 2021-06-23 21:42 | Emergency (ER) | payer SELFPAY ==
[2021-06-23 22:03] VITALS: BP 109/73; PULSE 101
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
[2021-06-23 22:44] LABS: BLOOD UREA NITROGEN,BUN 10 mg/dL (7.0-18.0); CARBON DIOXIDE,CO2 25.1 mmol/L (21.0-32.0); CHLORIDE,CL 102 mmol/L (98-107); GLUCOSE RANDOM 112 mg/dL (74-106); POTASSIUM,K 3.8 mmol/L (3.5-5.1); SODIUM,NA 139 mmol/L (136-145)
--- NOTE | 2021-06-23 23:13 | CR ---
Indication: Cough and shortness of breath Technique: Chest 1 view Comparison: Chest x-ray 11/05/2020 Findings/Impression: Cardiovascular and mediastinum: Heart size and vasculature are normal in caliber and appearance. Lungs and pleural space: Lungs are clear. No sign of infiltrate or mass. No sign of pleural effusion. No pneumothorax. Bones and soft tissues: No acute findings. Dictated by Dm Patrick MD @ 06/23/2021 11:10:45 PM (Electronically Signed)
== END 2021-06-23 23:30 | disposition home or self-care (01) ==
LOC: MW.ED 21:42
DX: J98.9 Respiratory disorder, unspecified (principal); Z88.5 Allergy status to narcotic agent
CPT/HCPCS: 36415; 71045; 71045-26; 80053; 81025; 85025; 99283-25

== ENCOUNTER 2022-07-01 00:27 | Emergency (ER) | payer OTHER ==
[2022-07-01 00:46] VITALS: BP 126/65
[2022-07-01] MEDS ORDERED: Sodium Chloride 0.9% 10 ML Syringe FLUSH PRN (00:48)
[2022-07-01] MEDS ORDERED: Ketorolac 30 MG/ML SDV IVPUSH ONE (00:48)
[2022-07-01] MEDS ORDERED: Sodium Chloride 0.9% 2.5 ML Syringe FLUSH PRN (00:48)
[2022-07-01 01:42] LABS: BLOOD UREA NITROGEN,BUN 16 mg/dL (7.0-18.0); CARBON DIOXIDE,CO2 22.4 mmol/L (21.0-32.0); CHLORIDE,CL 99 mmol/L (98-107); GLUCOSE RANDOM 82 mg/dL (74-106); POTASSIUM,K 3.4 mmol/L (3.5-5.1); SODIUM,NA 134 mmol/L (136-145)
[2022-07-01 01:43] LABS: ESTIMATED GFR 95 mL/min (>60)
[2022-07-01 01:55] VITALS: PULSE 68
== END 2022-07-01 01:54 | disposition home or self-care (01) ==
LOC: MW.ED 00:27
DX: N93.9 Abnormal uterine and vaginal bleeding, unspecified (principal); Z88.6 Allergy status to analgesic agent
CPT/HCPCS: 36415; 80053; 84702; 85025; 96374; 99284; J1885; J3490; 99283